=== PATIENT | female | born 1940 | race Caucasian/White ===

== ENCOUNTER 2022-03-05 17:35 | Outpatient (CLI) | payer OTHER, MEDICARE | END 2022-03-05 17:36 | disposition critical access hospital (66) | LOC: EMS 17:35 | DX: S01.112A Laceration without foreign body of left eyelid and periocular area, initial encounter (principal); R07.81 Pleurodynia; V43.52XA Car driver injured in collision with other type car in traffic accident, initial encounter; Y92.413 State road as the place of occurrence of the external cause | CPT/HCPCS: A0425; A0429 ==

== ENCOUNTER 2022-03-05 18:06 | Emergency (ER) | payer OTHER, MEDICARE ==
[2022-03-05] MEDS ORDERED: TETANUS/DIPHTHERIA/PERTUSSIS 0.5 ML SYRINGE IM ONE (18:10)
[2022-03-05] MEDS ORDERED: LIDOCAINE 1%-EPI 1:100000 20 ML MDV SUBQ STA (18:10)
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
[2022-03-05 18:30] LABS: BASOPHILS # (AUTO) 0.1 10^3/uL (0.0-0.1); BASOPHILS % (AUTO) 1.3 %; EOSINOPHILS # (AUTO) 0.3 10^3/uL (0.0-0.7); EOSINOPHILS % (AUTO) 5.7 %; HCT - HEMATOCRIT 39.8 % (37.0-47.0); HGB - HEMOGLOBIN 13.4 g/dL (12.0-16.0); LYMPHOCYTES % (AUTO) 37.4 %; MEAN CORPUSCULAR HEMOGLOBIN 31.7 pg (27.0-31.0); MEAN CORPUSCULAR HGB CONC 33.7 g/dL (32.0-36.0); MEAN CORPUSCULAR VOLUME 94.1 fL (81.0-99.0); MEAN PLATELET VOLUME 11.6 fL (7.9-10.8); MONOCYTES # (AUTO) 0.7 10^3/uL (0.0-1.0); MONOCYTES % (AUTO) 12.6 %; NEUTROPHILS # (AUTO) 2.3 10^3/uL (1.5-6.6); NEUTROPHILS % (AUTO) 42.8 %; PLT - PLATELET COUNT 166 10^3/uL (130-450); RED BLOOD COUNT 4.23 10^6/uL (4.20-5.40); RED CELL DISTRIBUTION WIDTH 12.7 % (12.0-15.0); WHITE BLOOD COUNT 5.4 x10^3/uL (4.8-10.8)
[2022-03-05 18:35] LABS: PT - PROTHROMBIN TIME 10.7 secs (9.9-12.6)
[2022-03-05 18:37] LABS: CREATININE 1.1 mg/dL (0.4-1.0); POTASSIUM 4.3 mmol/L (3.5-5.0)
--- NOTE | 2022-03-05 18:54 | XRAY Report ---
PROCEDURE: Hand 3 View RT INDICATIONS: Hand injury TECHNIQUE: 3 views of the hand(s) acquired. COMPARISON: None FINDINGS: Bones: No fractures or dislocations. No suspicious bony lesions. Diffuse IP and first CMC as well as radiocarpal degenerative narrowing. Soft tissues: No suspicious soft tissue calcifications. IMPRESSION: Diffuse arthritic change. No visualized acute fracture or dislocation. However, occult injury cannot be excluded. Recommend short interval imaging follow-up in 7-10 days as clinically indicated for jay tional evaluation. Reviewed by: Bonnie Silva MD on 03/05/2022 6:52 PM PDT Approved by: Bonnie Silva MD on 03/05/2022 6:52 PM PDT Station ID: [id number]
--- NOTE | 2022-03-05 18:54 | CT Report ---
PROCEDURE: HEAD WO INDICATIONS: Head/chest injury TECHNIQUE: Noncontrast 4.5 mm thick angled axial sections acquired from the foramen magnum to the vertex. For r adiation dose reduction, the following was used: automated exposure control, adjustment of mA and/or kV according to patient size. COMPARISON: None. FINDINGS: Image quality: Excellent. The ventricular system and cortical sulci demonstrate atrophy, consistent for patient's stated age. There are areas of hypodensity in the periventricular and subcortical white matter. There is no acut e intra or extra-axial fluid collection. No acute hemorrhage, mass lesion or midline shift. Brainst em is unremarkable. Globes are symmetrical. Sinuses are aerated. Osseous structures are intact. IMPRESSION: 1. No acute intracranial process. 2. Moderate atrophy and chronic microvascular ischemic changes. Reviewed by: Bonnie Silva MD on 03/05/2022 6:53 PM PDT Approved by: Bonnie Silva MD on 03/05/2022 6:53 PM PDT Station ID: [id number]
--- NOTE | 2022-03-05 18:55 | CT Report ---
PROCEDURE: CERVICAL SPINE WO INDICATIONS: Head/chest injury TECHNIQUE: Noncontrast 3 mm thick sections acquired from the skull base to the T4 level. Sagittal and coronal r eformats were then constructed. For radiation dose reduction, the following was used: automated exp osure control, adjustment of mA and/or kV according to patient size. COMPARISON: None. FINDINGS: Image quality: Excellent. Bones: No fractures or dislocations. Visualized superior ribs are intact. Multilevel degenerative disc space narrowing is present. There is 4 mm anterolisthesis of C4 on C5, 3 mm retrolisthesis of C3 on C4. Soft tissues: Prevertebral soft tissues are normal in thickness. No paravertebral hematomas. No ap ical pneumothoraces. IMPRESSION: No visualized fracture. Reviewed by: Bonnie Silva MD on 03/05/2022 6:54 PM PDT Approved by: Bonnie Silva MD on 03/05/2022 6:54 PM PDT Station ID: [id number]
--- NOTE | 2022-03-05 19:10 | CT Report ---
PROCEDURE: CHEST WO INDICATIONS: Head/chest injury TECHNIQUE: Noncontrast 1mm axial images were acquired from the pulmonary apices to the posterior costophrenic an gles. Axial 5 mm soft tissue kernel reconstructions were performed as well as 8 mm axial MIP and cor onal and sagittal 5 mm reformations. For radiation dose reduction, the following was used: automate d exposure control, adjustment of mA and/or kV according to patient size. COMPARISON: None FINDINGS: Image quality: Excellent. Lungs and pleura: Linear opacities likely related to scarring versus atelectasis is present within th e lingula. Small cluster of punctate nodularity is noted in the lateral aspect of the right upper lob e as seen on series 4 image 141. No pleural effusions or pneumothorax. Central and peripheral airway s are patent and normal in caliber. Mediastinum: Heart size is normal. No pericardial effusion. No mediastinal adenopathy by size crit eria. Thoracic aorta and central pulmonary arteries are normal in size. Esophagus is normal in kristen oanh. No hiatal hernia. Bones and chest wall: No suspicious bony lesions. No vertebral body compression fractures. No axil nikki or supraclavicular adenopathy by size criteria. The thyroid is normal in size and there are no incidental findings. Abdomen: Visualized upper abdominal solid organs and bowel loops appear normal in the absence of con trast. IMPRESSION: Small cluster of nodularity in the right upper lobe as above. This is overall nonspecific but can be related to infection or inflammation including atypical etiologies such as fungal or mycobacterial. R ecommend interval follow-up after appropriate therapy to document resolution. CLINICAL RECOMMENDATION STATEMENTS: In patients <35 years with an ITN detected on CT, MRI, or extrathyroidal ultrasound, the Committee re commends further evaluation with dedicated thyroid ultrasound if the nodule is "e1 cm and has no susp icious imaging features, and if the patient has normal life expectancy. In patients "e35 years with an ITN detected on CT, MRI, or extrathyroidal ultrasound, the Committee r ecommends further evaluation with dedicated thyroid ultrasound if the nodule is "e1.5 cm and has no s uspicious imaging features, and if the patient has normal life expectancy. (ACR, 2014) Reviewed by: Bonnie Silva MD on 03/05/2022 7:09 PM PDT Approved by: Bonnie Silva MD on 03/05/2022 7:09 PM PDT Station ID: [id number]
[2022-03-05] MEDS ORDERED: BACITRACIN ZINC OINT 1 PACKET TOP STA (19:17)
[2022-03-05] MEDS ORDERED: HYDROcod/ACET 5/325 Prepack 4 PO STA (20:21)
[2022-03-05 20:37] VITALS: BP 128/88
== END 2022-03-05 21:06 | disposition home or self-care (01) ==
LOC: ED 18:06
DX: S01.112A Laceration without foreign body of left eyelid and periocular area, initial encounter (principal); S22.32XA Fracture of one rib, left side, initial encounter for closed fracture; S16.1XXA Strain of muscle, fascia and tendon at neck level, initial encounter; S60.221A Contusion of right hand, initial encounter; V43.52XA Car driver injured in collision with other type car in traffic accident, initial encounter; Y93.89 Activity, other specified; R91.8 Other nonspecific abnormal finding of lung field
CPT/HCPCS: 12011; 36415; 70450; 71250; 72125; 73130; 80048; 85025; 85610; 90471; 90715; 99282; 99284; A9270